=== PATIENT | female | born 1960 | race Caucasian/White ===

== ENCOUNTER 2017-05-31 11:53 | Inpatient (IN) | payer OTHER ==
[~2017-05-31] VITALS: Ht 152.4 cm; Wt 59.1 kg
[2017-05-31] VITALS (9 sets, daily range): BP systolic 89–204; BP diastolic 58–104; PULSE 44–67; RESP 13–18; O2SAT 98–100
--- NOTE | 2017-05-31 11:56 | ED.REPORT ---
HPI-Chest Pain 40 and Over Date of Service May 31, 2017 ED Provider: Abe Chaney MD The pt is a 57 y/o female w/ a hx of HTN, fibromyalgia, and herpes presenting to the ED via EMS complaining of dizziness. She also reports feeling very fatigued. The pt reports flying into [place] to visit family, and walking around "a bunch" three days ago. Two days ago she felt "drugged" and yesterday she began to feel dizzy. Denies chest pain and SOB. Nothing like this has ever happened to the pt before. The pt was given .5 MG of Atropine IV en route. The pt is on Metoprolol for HTN and has had episodes of near syncope for the last couple of days. She was also found to have bradycardia w/ heart rates in the 30-40s. She takes 50 MG once a day and reports that she is certain she has not taken any extra dose. Nursing Notes Stated Complaint: LOW HEART RATE Chief Complaint: Dizziness Nursing Notes Reviewed: Yes Allergies: Coded Allergies: Adhesives (Verified Allergy, Unknown, Rash, 05/31/17) Sulfa (Sulfonamide Antibiotics) (Verified Allergy, Unknown, Rash, 05/31/17) nickel (Verified Allergy, Unknown, Rash, 05/31/17) Scheduled Cholecalciferol (Vitamin D3) (Vitamin D3) 1,000 Unit Tab.chew 1,000 UNIT PO DAILY Cyclosporine (Restasis) 1 Each Droperette 1 DROP BOTH_EYES BID Lactobacillus Combination No.4 (Probiotic) 1 Each Capsule 1 EACH PO BID Loratadine (Loratadine) 10 Mg Capsule 10 MG PO DAILY Metoprolol Succinate ER (Metoprolol Succinate ER) 50 Mg Tab.er.24h 50 MG PO DAILY Riboflavin (Vitamin B-2) 25 Mg Tablet 400 MG PO DAILY Valacyclovir HCl (Valtrex) 500 Mg Tablet 500 MG PO BID Scheduled PRN Eletriptan HBr (Relpax) 40 Mg Tablet 40-80 MG PO DAILY PRN PRN migraines Ranitidine (Ranitidine) 150 Mg Capsule 150 MG PO DAILY PRN PRN For Indigestion Temazepam (Temazepam) 15 Mg Capsule 15-30 MG PO HS PRN PRN For Insomnia Tizanidine (Tizanidine) 4 Mg Capsule 4-8 MG PO QPM PRN PRN For Spasm General Time Seen by MD: 11:55 Chief Complaint Other (Dizziness ) Hx Obtained From: Patient Arrived By: Ambulance Sudden in Onset?: Yes Onset Occurred: Yesterday Symptom Duration: Intermittent Recent Healthcare: No recent doctor visit, No recent hospitalization Similar Sx Previous: No Past Medical History Past Medical History Fibromyalgia Herpes HTN Past Surgical History Tonsillectomy Cholecystectomy Sinus surgery Uterine ablation Smoking History Unknown if Ever Smoker Social History Alcohol Use: 1-3 per day Other Social History: Good social support Ambulatory Status Independent Review of Systems Constitutional: Reports: Fatigue Respiratory: Denies: Shortness of breath Cardiovascular: Denies: Chest pain Neurologic: Reports: Dizziness Complete sys rev & neg: except as marked. Physical Exam Initial Vital Signs Vital Signs (First) Date Time Temp Pulse Resp B/P Pulse Ox O2 Delivery O2 Flow Rate FiO2 05/31/17 11:55 36.7 61 13 204/104 100 Room Air Initial VS: Reviewed Head / Eyes: Atraumatic, Normocephalic, PERRL ENT: Mucous membranes moist, Conjunctiva normal, No scleral icterus Neck: Supple, Non-tender, Full range of motion Extremities: Vascular intact, Neuro intact, No swelling, No tenderness Skin: Warm, Dry, No cyanosis Neurologic: Alert, Oriented, Nonfocal Psychiatric: Mood/affect normal, Behavior normal, Normal thought content General/Constitutional: Awake, Alert, No acute distress Respiratory / Chest: Atraumatic, Breath sounds NL, Breath sounds = bilat, No respiratory distress, No rales, No rhonchi, No wheezing Cardiovascular: Heart rate NL, Regular rhythm, Heart sounds NL, No gallop, No murmurs, No rubs, Peripheral circulation NL Abdomen: Atraumatic, Soft, Non-tender Interpretation & Diagnostics Lab Results Interpretation Result Diagram: 06/01/17 0345 06/01/17 0345 Test 05/31/17 12:26 Magnesium Level 1.7mg/dL (1.6-2.6) Troponin T < 0.010ug/L (0.0-0.011) Pro-B-Type Natriuretic Peptide 455.2pg/mL (0-287) ECG Interpretation ECG Interpretation: Rate 54 NSR T-wave aversions in 3, V1 and AVR No other STT changes Time: 12:15 Interpreted by: ED physician X-Ray Chest Interpretation Chest Xray Interpretation: IMPRESSION: No radiographic evidence of acute cardiopulmonary pathology. Dictated by: Abe Jon M.D. on 05/31/2017 at 12:10 Approved by: Abe Jon M.D. on 05/31/2017 at 12:11 View: Portable, 1 view Interpretation / Wet Read by: Interpret - Radiologist Re-Eval/Medical Decision Med Decision/Clinical Course 57-year-old female history of hypertension on metoprolol presenting with dizziness times several days and fatigue. She arrived from out of the area and went to urgent care this morning was found to have heart rate in the 30s. She was given atropine by paramedics and felt better immediately. Patient's heart rate improved to the 50s after atropine and dipped down to the 40s. She started to feel fatigued again. Discussed with cardiology recommended admission with atropine at the bedside no glucagon at this time. Admitted to hospitalist. Source of Hx: Old records Time of Eval: 13:37 Re-Evaluation/Progress Note: Pt rechecked. Informed pt of need for admission. Pt understands and agrees with plan for admission. All questions addressed. Consultation : Referral / Consult Name: Arthur Apple MD Consulted With: Hospitalist Call Returned at: 13:37 City Collector: Will see patient, Agrees with eval, Agrees with plan, Accepts admit Counseled Regarding: Diagnosis, Lab results, Need for admission Discharge & Departure Primary Impression: Symptomatic bradycardia Disposition: ADMITTED TO HOSPITAL Discharge Condition All VS Reviewed: Yes Condition: Stable Referrals: [facility] Crit Care Except Billable Proc Time Spent: 30-74 minutes Services Performed: Patient management by me, Time spent at bedside, Reviewing test results, Discussing patient care, Documentation in record Scribe Attestation Portions of this note were transcribed by Sushant Toure. I, Dr. Chaney personally performed the history, physical exam and medical decision-making; I reviewed and confirmed the accuracy of the information in the transcribed note. Signed by: Shaneka Jeffery, 05/31/17 and 1330. copies to: [facility] Abe Chaney MD May 31, 2017 11:56 Sushant Toure May 31, 2017 12:56 Magnesium Level 1.7mg/dL (1.6-2.6) Total Bilirubin 0.2mg/dL (0.0-1.2) Aspartate Amino Transf (AST/SGOT) 23U/L (0-50) Alanine Aminotransferase (ALT/SGPT) 25U/L (0-32) Alkaline Phosphatase 55U/L (25-150) Troponin T < 0.010ug/L (0.0-0.011) Pro-B-Type Natriuretic Peptide 455.2pg/mL (0-287) Total Protein 6.7g/dL (6.4-8.4) Albumin 4.1g/dL (3.4-5.0) ECG Interpretation ECG Interpretation: Rate 54 NSR T-wave aversions in 3, V1 and AVR No other STT changes Time: 12:15 Interpreted by: ED physician X-Ray Chest Interpretation Chest Xray Interpretation: IMPRESSION: No radiographic evidence of acute cardiopulmonary pathology. Dictated by: Abe Jon M.D. on 05/31/2017 at 12:10 Approved by: Abe Jon M.D. on 05/31/2017 at 12:11 View: Portable, 1 view Interpretation / Wet Read by: Interpret - Radiologist Re-Eval/Medical Decision Source of Hx: Old records Time of Eval: 13:37 Re-Evaluation/Progress Note: Pt rechecked. Informed pt of need for admission. Pt understands and agrees with plan for admission. All questions addressed. Consultation : Referral / Consult Name: Arthur Apple MD Consulted With: Hospitalist Call Returned at: 13:37 City Collector: Will see patient, Agrees with eval, Agrees with plan, Accepts admit Counseled Regarding: Diagnosis, Lab results, Need for admission Discharge & Departure Primary Impression: Symptomatic bradycardia Disposition: ADMITTED TO HOSPITAL Discharge Condition All VS Reviewed: Yes Condition: Stable Referrals: [facility] Crit Care Except Billable Proc Time Spent: 30-74 minutes Services Performed: Patient management by me, Time spent at bedside, Reviewing test results, Discussing patient care, Documentation in record Scribe Attestation Portions of this note were transcribed by Sushant Toure. I, Dr. Chaney personally performed the history, physical exam and medical decision-making; I reviewed and confirmed the accuracy of the information in the transcribed note. Signed by: Shaneka Jeffery, 05/31/17 and 1330. copies to: [facility] Abe Chaney MD May 31, 2017 11:56 Sushant Toure May 31, 2017 12:56
--- NOTE | 2017-05-31 12:13 | DRSVH ---
PROCEDURE: X-RAY CHEST ONE VIEW, PORTABLE ([id number]) INDICATIONS: near syncope TECHNIQUE: One view of the chest was acquired. COMPARISON: None. FINDINGS: Surgical changes and devices: None. Lungs and pleura: No pleural effusions or pneumothorax. Lungs are clear. Mediastinum: Mediastinal contours appear normal. Heart size is normal. Bones and chest wall: No suspicious bony lesions. Overlying soft tissues appear unremarkable. IMPRESSION: No radiographic evidence of acute cardiopulmonary pathology. Dictated by: Abe Jon M.D. on 05/31/2017 at 12:10 Approved by: Abe Jon M.D. on 05/31/2017 at 12:11
[2017-05-31] MEDS ORDERED: LEVO1CAP PO (12:24)
[2017-05-31] MEDS ORDERED: TIZA4CAP8 PO (12:24)
[2017-05-31] MEDS ORDERED: RIBO25TA PO (12:24)
[2017-05-31] MEDS ORDERED: LACT1CAP67 PO (12:24)
[2017-05-31] MEDS ORDERED: CHOL10008 PO (12:24)
[2017-05-31] MEDS ORDERED: METO-272 PO (12:24)
[2017-05-31] MEDS ORDERED: RES15 PO (12:24)
[2017-05-31] MEDS ORDERED: ELET40TA9 PO (12:24)
[2017-05-31] MEDS ORDERED: CYCL1DRO BOTH_EYES (12:24)
[2017-05-31] MEDS ORDERED: RANI150C4 PO (12:24)
[2017-05-31] MEDS ORDERED: MAGN1POW4 MC (12:24)
[2017-05-31] MEDS ORDERED: LORA10CA9 PO (12:24)
[2017-05-31] MEDS ORDERED: VALA500T2 PO (12:24)
[2017-05-31 12:31] LABS: BASOPHILS % (AUTO) 0.5 % (0-3); EOSINOPHILS % (AUTO) 1.3 % (0-5); MONOCYTES % (AUTO) 11.8 % (4-12); Mean Corpuscular Hemoglobin 32.1 pg (27.0-35.0); Mean Corpuscular Volume 93.6 fL (81-100); NEUTROPHILS % (AUTO) 64.4 % (40-74); Platelet Count 258 bil/L (150-400)
[2017-05-31] MEDS ORDERED: [UNRECOGNIZED DRUG - OTHER] TOPICAL (12:32)
[2017-05-31] MEDS ORDERED: curamin (12:32)
[2017-05-31 13:05] LABS: Magnesium 1.7 mg/dL (1.6-2.6)
[2017-05-31 13:06] LABS: TROPONIN T < 0.010 ug/L (0.0-0.011)
[2017-05-31] MEDS ORDERED: Ondansetron 2 mg/mL 2 mL Inj IVPUSH PRN ×2 (13:45→13:50)
[2017-05-31] MEDS ORDERED: Alum-Mag Hydrox-Simeth 30 mL Suspension PO PRN ×2 (13:45→13:50)
[2017-05-31] MEDS ORDERED: Polyethylene Glycol (PEG) 17 Gm Powder PO PRN (13:50)
[2017-05-31] MEDS ORDERED: [UNRECOGNIZED DRUG - OTHER] PO (14:17)
[2017-05-31] MEDS ORDERED: Atropine 1 mg/10 mL (Code) Syringe IVPUSH PRN (14:25)
[2017-05-31] MEDS: Heparin 5,000 Unit/mL Inj SUBQ SCH ×2 (17:50→23:15)
--- NOTE | 2017-05-31 17:51 | PCM.HPMED ---
Subjective Date of Service May 31, 2017 Primary Provider: Admitting Physician: Arthur Apple MD Primary Care Physician: Other,Physician Attending Physician: Arthur Apple MD Chief Complaint: Dizziness, fatigue History of Present Illness: Vaishnavi Brannon is a 57 year old female with past medical history of fibromyalgia, hypertention controlled with metoprolol and herpes that presented to the Emergency Department via EMS on 05/31 with complaints of increasing fatigue and dizziness for the past couple days. She recently flew into [place] and did some tourist activities and initially attributed the fatigue to that but could not shake a feeling of being dizzy or "drugged" and decided today after almost passing out that she should follow up. She denies any recent illnesses, sick contacts, chest pain or palpitations, shortness of breath, loss of consciousness, or overuse of her metoprolol. Review of Systems: A comprehensive review of systems was conducted with the patient and found to be negative except as above in the History of Present Illness. Allergies Coded Allergies: Adhesives (Verified Allergy, Unknown, Rash, 05/31/17) Sulfa (Sulfonamide Antibiotics) (Verified Allergy, Unknown, Rash, 05/31/17) nickel (Verified Allergy, Unknown, Rash, 05/31/17) Home Medications Scheduled Cholecalciferol (Vitamin D3) (Vitamin D3) 1,000 Unit Tab.chew 1,000 UNIT PO DAILY Cyclosporine (Restasis) 1 Each Droperette 1 EACH OP BID Eletriptan HBr (Relpax) 40 Mg Tablet 40-80 MG PO PRN Lactobacillus Combination No.4 (Probiotic) 1 Each Capsule 1 EACH PO BID Levomefolate/Algal Oil (Deplin-Algal Oil 15 mg Capsule) 1 Each Capsule 15 MG PO DAILY Loratadine (Loratadine) 10 Mg Capsule 10 MG PO DAILY Magnesium Malate (Magnesium Malate) 1 Gm Powder 1,250 MG MC QID Metoprolol Succinate ER (Metoprolol Succinate ER) 50 Mg Tab.er.24h 50 MG PO DAILY Ranitidine (Ranitidine) 150 Mg Capsule 150 MG PO DAILY Riboflavin (Vitamin B-2) 25 Mg Tablet 400 MG PO DAILY Tizanidine (Tizanidine) 4 Mg Capsule 4-8 MG PO prn Valacyclovir HCl (Valtrex) 500 Mg Tablet 500 MG PO BID Scheduled PRN Temazepam (Temazepam) 15 Mg Capsule 15-30 MG PO HS PRN PRN For Insomnia PMH Fibromyalgia Herpes Hypertension Surgical History Tonsillectomy Cholecystectomy Sinus Cyst surgery Uterine ablation Family History Adopted, does not know biological family Social History Hx Alcohol Use: Yes (1-2 per day (wine or cider)) Hx Substance Use: No Hx Tobacco Use: No Smoking Status: Unknown if Ever Smoker Living Arrangement: with Family Exam Vital Signs Vital Sign - Last Date Time Temp Pulse Resp B/P Pulse Ox O2 Delivery O2 Flow Rate FiO2 05/31/17 15:48 46 05/31/17 15:19 36.6 18 190/74 99 Room Air Exam General: Age-appropriate female in no acute distress, well-developed, well- nourished, appropriately interactive HEENT: Normocephalic, atraumatic. External ears without defect. Pupils equal, round, and reactive to light and accommodation. Anicteric sclerae, moist conjunctivae, and no lid lag. Oropharynx free of erythema and cobble stoning with moist mucosa. Neck: Supple with full range of motion. No jugular venous distension. No bruits. No lymphadenopathy or thyromegaly. Cardiovascular: Bradycardic with normal rhythm without murmurs, rubs, or gallops appreciated Pulmonary: Clear to auscultation bilaterally with no crackles, wheezes, or rhonchi. Normal respiratory effort with no use of accessory muscles. Abdomen: Bowel tones present. Soft, nontender, nondistended. No hepatosplenomegaly or masses appreciated. Extremities: No clubbing, cyanosis, edema, or lymphadenopathy appreciated. Skin: Normal temperature, turgor, and texture; no rash, ulcers, or subcutaneous nodules appreciated. Neurological: Cranial nerves grossly intact. Normal muscle strength, tone, and bulk. Reflexes, coordination, and sensory function within normal limits. No known gait impairment. Psychiatric: Normal mood and affect. Alert and oriented x3. Lab and Diagnostics Result Diagram: 05/31/17 1226 05/31/17 1226 X-Rays, CTs and MRIs CXR 05/31/17 FINDINGS: Surgical changes and devices: None. Lungs and pleura: No pleural effusions or pneumothorax. Lungs are clear. Mediastinum: Mediastinal contours appear normal. Heart size is normal. Bones and chest wall: No suspicious bony lesions. Overlying soft tissues appear unremarkable. IMPRESSION: No radiographic evidence of acute cardiopulmonary pathology. Dictated by: Abe Jon M.D. on 05/31/2017 at 12:10 Approved by: Abe Jon M.D. on 05/31/2017 at 12:11 Assessment & Plan Vaishnavi Brannon is a 57 year old female with past medical history of fibromyalgia, hypertention controlled with metoprolol and herpes that presented to the Emergency Department via EMS on 05/31 with complaints of increasing fatigue and dizziness for the past couple days. She recently flew into [place] and did some tourist activities and initially attributed the fatigue to that but could not shake a feeling of being dizzy or "drugged" and decided today after almost passing out that she should follow up. Symptomatic Bradycardia, present on admission. Acute. Ongoing. - Patient is on 50mg Metoprolol Succinate at home, has been fatigued and dizzy - Case discussed with Dr. Mejia of Cardiology with the following recommendations: Hold home Metoprolol succinate 50mg daily Reassess bradycardia after holding Metoprolol to evaluate need for further intervention - Atropine 0.5mg PRN symptomatic bradycardia with HR < 40 ordered Hypertension, present on admission. Chronic. - Hold Metoprolol due to bradycardia - IV Enalapril 0.625 mg ordered once - Start Lisinopril 10mg PO in AM Herpes, present on admission. Chronic. - Continue home Valacyclovir 500 mg Fibromyalgia, present on admission. Chronic. Stable. - Stable; no medications taken PRN Acetaminophen for mild pain when necessary. Bowel regimen Senna and MiraLAX scheduled as necessary. Zofran when necessary for nausea and vomiting. SubQ heparin on board. SCDs in place. Patient Status: Patient was admitted as an inpatient with expected length of stay >2 midnights due to severity of presenting symptoms, medical work up and overall treatment plan. VTE Prophylaxis: Sub-Q Heparin (Unfractionated) VTE Mechanical Devices: Intermittant Pneumatic CD Resuscitation Status: CPR: Attempt Resuscitation Attending Statement The patient was seen and examined together with Dr. Serrano on 05/31/2017 and I agree with the history, exam and plan as outlined in the note above. . Yasir Serrano DO May 31, 2017 17:51 Arthur Apple MD Jun 02, 2017 06:34
[2017-05-31] MEDS: CYCLOSPORINE BOTH_EYES SCH (20:30)
[2017-06-01 03:25] VITALS: BP 112/74; PULSE 46; RESP 16; O2SAT 98
[2017-06-01 04:20] LABS: Mean Corpuscular Hemoglobin 32.4 pg (27.0-35.0); Mean Corpuscular Volume 93 fL (81-100); NEUTROPHILS % (AUTO) 49 % (40-74); Platelet Count 240 bil/L (150-400)
[2017-06-01 04:21] LABS: BASOPHILS % (AUTO) 0 % (0-3); EOSINOPHILS % (AUTO) 1 % (0-5); MONOCYTES % (AUTO) 11 % (4-12)
[2017-06-01 05:06] VITALS: PULSE 47
[2017-06-01 07:45] VITALS: BP 154/87; PULSE 62; RESP 16; O2SAT 99
[2017-06-01 08:00] VITALS: PULSE 59
[2017-06-01] MEDS ORDERED: [UNRECOGNIZED DRUG - OTHER] PO SCH (08:30)
[2017-06-01] MEDS: CYCLOSPORINE BOTH_EYES SCH (08:30)
[2017-06-01] MEDS ORDERED: [UNRECOGNIZED DRUG - OTHER] TOPICAL SCH (08:30)
[2017-06-01] MEDS ORDERED: [UNRECOGNIZED DRUG - OTHER] PO SCH (08:30)
[2017-06-01 09:49] VITALS: BP 163/89
[2017-06-01] MEDS: Heparin 5,000 Unit/mL Inj SUBQ SCH (09:53)
[2017-06-01] MEDS ORDERED: LISI-610 PO (11:50)
--- NOTE | 2017-06-01 11:50 | PCM.DIMED ---
Yasir Serrano DO 06/01/17 1150: Discharge Instructions Date of Service Jun 01, 2017 Dates of Hospitalization May 31, 2017 at 13:44 Discharge Diagnosis Discharge Diagnosis Symptomatic Bradycardia Hypertension Herpes Fibromyalgia Diet Discharge Diet: Heart Healthy Activity Discharge Activity: No restrictions Call your provider Call your provider for: Shortness of breath, Chest pain, Weakness (unilateral) , Other (Fatigue) Patient Instructions Patient Instructions Stop taking Metoprolol. I started you on 10mg of Lisinopril daily. Please take your blood pressure 1-2x daily and write down the numbers. Bring this log with you to the Residency clinic so we can further evaluate your blood pressures before you go back to [place]. See your normal PCP for further medication evaluation when you return to [place]. Follow-up Provider: [facility] Follow-up with PCP in: 1 week ([facility] Residency clinic in 1 week) Arthur Apple MD 06/02/17 0635: Discharge Instructions Attending's Statement The patient was seen and examined together with Dr. Serrano on 05/31/2017 and I agree with the history, exam and plan as outlined in the note above. . Yasir Serrano DO Jun 01, 2017 11:50 Arthur Apple MD Jun 02, 2017 06:35
--- NOTE | 2017-06-01 12:42 | PCM.DC.MED ---
Discharge Summary Date of Service Jun 01, 2017 Dates of Hospitalization Date of Hospital Admission May 31, 2017 at 13:44 Date of Discharge: Jun 01, 2017 Providers: Admitting Physician: Arthur Apple MD Primary Care Physician: Other,Physician Attending Physician: Arthur Apple MD Diagnosis at Time of Discharge Diagnosis at Time of Discharge Symptomatic Bradycardia Hypertension Herpes Fibromyalgia Consultations Dr. Mejia, Cardiology Procedures XRay, CTs & MRIs CXR 05/31/17 FINDINGS: Surgical changes and devices: None. Lungs and pleura: No pleural effusions or pneumothorax. Lungs are clear. Mediastinum: Mediastinal contours appear normal. Heart size is normal. Bones and chest wall: No suspicious bony lesions. Overlying soft tissues appear unremarkable. IMPRESSION: No radiographic evidence of acute cardiopulmonary pathology. Dictated by: Abe Jon M.D. on 05/31/2017 at 12:10 Approved by: Abe Jon M.D. on 05/31/2017 at 12:11 Brief History Vaishnavi Brannon is a 57 year old female with past medical history of fibromyalgia, hypertention controlled with metoprolol and herpes that presented to the Emergency Department via EMS on 05/31 with complaints of increasing fatigue and dizziness for the past couple days. She recently flew into [place] and did some tourist activities and initially attributed the fatigue to that but could not shake a feeling of being dizzy or "drugged" and decided today after almost passing out that she should follow up. She denies any recent illnesses, sick contacts, chest pain or palpitations, shortness of breath, loss of consciousness, or overuse of her metoprolol. She was admitted to the hospital with a resting HR between 30-40 and dizzy when she was getting up even after the Atropine given by EMS on the way in. She was placed on telemetry and monitored overnight with her HR sitting between 35-45 most of the night. The next morning (06/01) her HR increased to sit between 50- 60 and then hover ~70 for a couple hours with appropriate response to activity ( 80-90 on with exertion). Her blood pressure was labile as she normally used Metoprolol to control it - after a 0.625mg dose of Enalaprilat for a pressure of 190 systolic, she was given 10 mg of Lisinopril and had pressures in the 120-130 systolic range. After a discussion with Dr. Mejia of Cardiology, it was deemed safe for the patient to leave the hospital with follow up in the Residency clinic in 1 week to assess her blood pressure and any ongoing symptoms as she is from [place] and will not be following up with him until she goes back in 1 month. Hospital Course Vaishnavi Brannon is a 57 year old female with past medical history of fibromyalgia, hypertention controlled with metoprolol and herpes that presented to the Emergency Department via EMS on 05/31 with complaints of increasing fatigue and dizziness for the past couple days. She recently flew into [place] and did some tourist activities and initially attributed the fatigue to that but could not shake a feeling of being dizzy or "drugged" and decided today after almost passing out that she should follow up. Symptomatic Bradycardia, present on admission. Acute. Ongoing. - Patient was on 50mg Metoprolol Succinate at home, has been fatigued and dizzy - Stop taking metoprolol - HR was between 60-70 with response in the 80's with activity and stable blood pressure Hypertension, present on admission. Chronic. - Stop metoprolol - Continue taking Lisinopril 10mg PO in AM; record your blood pressures in the morning and at night - Follow up in the Residency clinic in 1 week with your pressure log for further medication evaluation Herpes, present on admission. Chronic. - Continue home Valacyclovir 500 mg Fibromyalgia, present on admission. Chronic. Stable. - Stable; continue home herbal therapy Patient Status: Patient was discharged in stable and improved condition, correcting much faster than initially anticipated. Her HR increased as the Metoprolol washed out of her system and she was asymptomatic during activity. She and her daughter expressed understanding of her condition and the need for ongoing outpatient evaluation and agreed to the plan outlined above. They also expressed understanding on under what conditions she was to return to the hospital for further evaluation. Exam Vital Signs (Last) Date Time Temp Pulse Resp B/P Pulse Ox O2 Delivery O2 Flow Rate FiO2 06/01/17 09:49 163/89 06/01/17 08:00 59 06/01/17 07:45 36.7 16 99 Room Air Exam General: Age-appropriate female in no acute distress, well-developed, well- nourished, appropriately interactive HEENT: Normocephalic, atraumatic. External ears without defect. Pupils equal, round, and reactive to light and accommodation. Anicteric sclerae, moist conjunctivae, and no lid lag. Oropharynx free of erythema and cobble stoning with moist mucosa. Neck: Supple with full range of motion. No jugular venous distension. No bruits. No lymphadenopathy or thyromegaly. Cardiovascular: RRR with 1-2/6 systolic murmur, rubs, or gallops appreciated Pulmonary: Clear to auscultation bilaterally with no crackles, wheezes, or rhonchi. Normal respiratory effort with no use of accessory muscles. Abdomen: Bowel tones present. Soft, nontender, nondistended. No hepatosplenomegaly or masses appreciated. Extremities: No clubbing, cyanosis, edema, or lymphadenopathy appreciated. Skin: Normal temperature, turgor, and texture; no rash, ulcers, or subcutaneous nodules appreciated. Neurological: Cranial nerves grossly intact. Normal muscle strength, tone, and bulk. Reflexes, coordination, and sensory function within normal limits. No known gait impairment. Psychiatric: Normal mood and affect. Alert and oriented x3. Test 05/31/17 12:26 06/01/17 03:45 Hemoglobin A1c 5.7% (4.8-5.6) Magnesium Level 1.7mg/dL (1.6-2.6) Troponin T < 0.010ug/L (0.0-0.011) Pro-B-Type Natriuretic Peptide 455.2pg/mL (0-287) White Blood Count 4.8th/mm3 (3.8-10.1) Red Blood Count 3.86mil/mm3 (3.90-5.20) Hemoglobin 12.5g/dL (12.0-15.6) Hematocrit 35.8% (35.0-46.0) Mean Corpuscular Volume 93fL (81-100) Mean Corpuscular Hemoglobin 32.4pg (27.0-35.0) Mean Corpuscular Hemoglobin Concent 34.9% (32.0-37.0) Red Cell Distribution Width 11.8% (12.3-15.4) Platelet Count 240bil/L (150-400) Neutrophils (%) (Auto) 49% (40-74) Lymphocytes (%) (Auto) 39% (14-46) Monocytes (%) (Auto) 11% (4-12) Eosinophils (%) (Auto) 1% (0-5) Basophils (%) (Auto) 0% (0-3) Sodium Level 139mEq/L (134-144) Potassium Level 5.2mEq/L (3.5-5.2) Chloride Level 101mEq/L (97-108) Carbon Dioxide Level 26mmol/L (18-29) Blood Urea Nitrogen 19mg/dL (6-24) Creatinine 0.73mg/dL (0.57-1.00) Estimat Glomerular Filtration Rate 117mL/min (>59) Glucose Level 101mg/dL (60-99) Calcium Level 9.3mg/dL (8.5-10.1) Total Bilirubin 0.2mg/dL (0.0-1.2) Aspartate Amino Transf (AST/SGOT) 19U/L (0-50) Alanine Aminotransferase (ALT/SGPT) 21U/L (0-32) Alkaline Phosphatase 52U/L (25-150) Total Protein 6.1g/dL (6.4-8.4) Albumin 3.9g/dL (3.4-5.0) Triglycerides Level 61mg/dL (0-149) Cholesterol Level 227mg/dL (100-199) LDL Cholesterol, Calculated 130.800mg/dL (0-99) VLDL Cholesterol 12.200mg/dL HDL Cholesterol 84mg/dL (>39) Cholesterol/HDL Ratio 2.70 (0.0-4.4) Discharge Medications Discharge Medications Cholecalciferol (Vitamin D3) (Vitamin D3) 1,000 Unit Tab.chew 1,000 UNIT PO DAILY (Reported) Cyclosporine (Restasis) 1 Each Droperette 1 DROP BOTH_EYES BID (Reported) Lactobacillus Combination No.4 (Probiotic) 1 Each Capsule 1 EACH PO BID ( Reported) Lisinopril (Zestril) 10 Mg Tablet 10 MG PO DAILY Prescribed by: LOUIE SERRANO DO Loratadine (Loratadine) 10 Mg Capsule 10 MG PO DAILY (Reported) Riboflavin (Vitamin B-2) 25 Mg Tablet 400 MG PO DAILY (Reported) Valacyclovir HCl (Valtrex) 500 Mg Tablet 500 MG PO BID (Reported) As needed Eletriptan HBr (Relpax) 40 Mg Tablet 40-80 MG PO DAILY PRN PRN migraines ( Reported) Ranitidine (Ranitidine) 150 Mg Capsule 150 MG PO DAILY PRN PRN For Indigestion ( Reported) Temazepam (Temazepam) 15 Mg Capsule 15-30 MG PO HS PRN PRN For Insomnia ( Reported) Tizanidine (Tizanidine) 4 Mg Capsule 4-8 MG PO QPM PRN PRN For Spasm (Reported) Followup Plan Discharge Diet: Heart Healthy Discharge Activity: No restrictions Patient Instructions Stop taking Metoprolol. I started you on 10mg of Lisinopril daily. Please take your blood pressure 1-2x daily and write down the numbers. Bring this log with you to the Residency clinic so we can further evaluate your blood pressures before you go back to [place]. See your normal PCP for further medication evaluation when you return to [place]. Follow-up Provider: [facility] Follow-up with PCP in: 1 week ([facility] Residency clinic in 1 week) Time spent Greater than 30 minutes was spent in preparation of discharge with greater than 50% of that time dedicated to patient counseling and coordination of care. . Attending Statement The patient was seen and examined together with Dr. Serrano on 06/01/2017 and I agree with the history, exam and plan as outlined in the note above. . Louie Serrano DO Jun 01, 2017 12:42 Arthur Apple MD Jun 02, 2017 06:36
== END 2017-06-01 12:35 | disposition home or self-care (01) | DRG 310 ==
LOC: SED 11:53 → EDBD 11:53 → PCC 13:44
PROVIDERS: ADMIT Internal Medicine; ATTEND Internal Medicine
DX: R00.1 Bradycardia, unspecified (principal); I10 Essential (primary) hypertension; B00.9 Herpesviral infection, unspecified; M79.7 Fibromyalgia